=== PATIENT | female | born 1995 | race Caucasian/White ===

== ENCOUNTER 2020-03-21 14:20 | Observation (INO) | payer BC, SELFPAY ==
[2020-03-21 14:45] VITALS: BMI 34.3
[2020-03-21 14:46] VITALS: BP 135/66; PULSE 76
[2020-03-21 15:31] VITALS: BP 130/65; PULSE 71
[2020-03-21 15:46] VITALS: BP 127/68; PULSE 77
[2020-03-21 16:50] LABS: Add Urine Microscopic? YES; Appearance Urine Cloudy (Clear); Bacteria Urine 3+ /hpf; Bilirubin Urine Negative (Negative); Blood Urine Negative (Negative); Color Urine Yellow (Yellow); Glucose Urine UA Negative (Negative); Ketones Urine Negative (Negative); Leukocyte Esterase Ur Negative LEU/UL (NEGATIVE); Mucus Urine Rare /lpf; Nitrate Urine Negative (Negative); Protein Urine Negative (Negative); RBC Urine 0-2 /hpf (0-2); Specific Grav Ur 1.008 (1.001-1.035); Squamous Epithelial Cell Urine Many /hpf (Few); Urobilinogen Urine Negative mg/dL (<2.0)
--- NOTE | 2020-03-21 18:52 | P.PNOB_ITS ---
OB - Triage/Final Diagnosis Evaluation Laboratory results: Laboratory Tests 03/21/20 16:27 Urine Color Yellow Urine Appearance Cloudy H Urine pH 7.0 Ur Specific [place] 1.008 Urine Protein Negative Urine Glucose (UA) Negative Urine Ketones Negative Ur Blood (Man) Negative Urine Nitrate Negative Urine Bilirubin Negative Urine Urobilinogen Negative Ur Leukocyte Esterase Negative Urine RBC 0-2 Urine WBC 4-6 H Ur Squamous Epith Cells Many H Urine Bacteria 3+ H Hyaline Casts 1-2 Urine Mucus Rare Final Diagnosis (1) Abdominal pain affecting : Code(s): O26.899 - Other specified related conditions, unspecified trimester; R10.9 - Unspecified abdominal pain Status: Acute
== END 2020-03-21 17:15 | disposition home or self-care (01) ==
PROVIDERS: Admitting Provider Obstetrics & Gynecology; PCP Emergency Medicine; Visit Provider Obstetrics & Gynecology
DX: O26.899 Other specified pregnancy related conditions, unspecified trimester (principal); R10.9 Unspecified abdominal pain; Z3A.00 Weeks of gestation of pregnancy not specified
CPT/HCPCS: 81001; 87086; G0378; G0379

== ENCOUNTER 2020-04-22 20:28 | Outpatient (CLI) | payer BC, SELFPAY ==
[2020-04-22 21:00] VITALS: BP 135/73; PULSE 82; TEMP 36.4
[2020-04-22 21:01] VITALS: BP 135/73; PULSE 80
== END 2020-04-22 21:32 | disposition home or self-care (01) ==
LOC: ANHOBOP 20:34 → ANHOBPP 04-28 07:50
PROVIDERS: PCP Emergency Medicine; Visit Provider Obstetrics & Gynecology
DX: O13.9 Gestational [pregnancy-induced] hypertension without significant proteinuria, unspecified trimester (principal)
CPT/HCPCS: 59025; 99199

== ENCOUNTER 2020-04-29 17:45 | Outpatient (CLI) | payer BC, SELFPAY ==
[2020-04-29 18:14] VITALS: BP 131/77; PULSE 72
[2020-04-29 18:16] VITALS: BP 123/67; PULSE 67
[2020-04-29 18:32] VITALS: BP 131/77; PULSE 80
== END 2020-04-29 18:40 | disposition home or self-care (01) ==
LOC: ANHOBOP 17:49 → ANHOBPP 17:49
PROVIDERS: PCP Emergency Medicine; Visit Provider Obstetrics & Gynecology
DX: O13.9 Gestational [pregnancy-induced] hypertension without significant proteinuria, unspecified trimester (principal); Z3A.00 Weeks of gestation of pregnancy not specified
CPT/HCPCS: 59025; 99199

== ENCOUNTER 2020-06-02 13:20 | Outpatient (RCR) | payer BC, SELFPAY ==
[2020-05-12 14:51] VITALS: BP 122/70; PULSE 74
[2020-05-19 11:56] VITALS: BP 129/76; PULSE 74
[2020-05-26 13:54] LABS: Basophils Percent Auto 0.2 % (0.2-1.2); Eosinophils Absolute Auto 0.2 K/mm3 (0-0.3); Eosinophils Percent Auto 1.7 % (0-4.4); Hematocrit 34.5 % (37.0-47.0); Hemoglobin 11.5 g/dL (12.0-15.0); Immature Granulocyte Absolute 0.04 K/mm3 (0.00-0.031); Immature Granulocyte Percent A 0.4 % (0-0.5); Lymphocytes Percent Auto 19.5 % (18.3-44.2); Mean Corpuscular HGB Conc 33.3 g/dl (32-36); Mean Corpuscular Hemoglobin 31.3 pg (26-34); Mean Platelet Volume 10.3 fl (7.4-10.4); Monocytes Absolute Auto 0.6 K/mm3 (0.1-0.6); Monocytes Percent Auto 6.4 % (2.6-8.5); Neutrophils Absolute Auto 6.6 K/mm3 (1.3-6.7); Neutrophils Percent Auto 71.8 % (45.5-73.1); Platelet Count Result 184 k/mm3 (150-375); Red Blood Count 3.67 M/mm3 (4.2-5.4); Red Cell Distribution Width 12.8 % (11.5-14.5); White Blood Count 9.2 K/mm3 (4.5-10.0)
[2020-05-26 14:08] LABS: Alanine Aminotransferase 10 U/L (4-35); Albumin Level 3.1 g/dL (3.5-5.1); Alkaline Phosphatase 184 U/L (38-126); Anion Gap 6 mmol/L (8-16); Aspartate Amino Transferase 13 U/L (14-36); Bilirubin,Total 0.2 mg/dL (0.2-1.3); Blood Urea Nitrogen 5 mg/dL (7-17); Calcium 8.3 mg/dL (8.4-10.2); Carbon Dioxide 22 mmol/L (22-30); Chloride 109 mmol/L (98-107); Estimated Glomerular Filt Rate > 60; Glucose 80 mg/dL (65-105); Potassium 3.3 mmol/L (3.4-5.0); Sodium 137 mmol/L (137-145); Uric Acid 3.3 mg/dL (2.5-7.5)
[2020-05-26 14:15] VITALS: BP 129/73; PULSE 77
[2020-05-26 14:35] VITALS: BP 134/86
[2020-05-27 11:48] VITALS: BP 158/80; PULSE 90
--- NOTE | ~2020-06-02 | US_ITS ---
EXAMINATION: US OB BPP wo non-stress DATE: 05/26/2020 13:18 INDICATION: Biophysical profile for maternal gestational diabetes during third trimester of . TECHNIQUE: Real-time pelvic ultrasound was performed. The interpreting radiologist was not present fo r the study. COMPARISON: 05/19/2020 FINDINGS: There is a single living fetus in vertex presentation. The placenta is posterior. heart rate i s 134 beats per minute (bpm). Biophysical profile performed by the technologist: breathing (30 sec sustained breathing in 30 minutes): 2 out of 2 movement (3 gross body movements in 30 minutes): 0 out of 2 tone (one episode of yqaezje-iggyvaxmu-qserimx limb movement): 2 out of 2 Amniotic fluid pocket (2 cm): 2 out of 2 Total score: 6 out of 8 IMPRESSION: 1. Single living fetus in vertex presentation with heart rate of 134 bpm. 2. Biophysical profile 6 out of 8 with no points given for 3 gross body movements over 30 minutes of observation. Reviewed, dictated and finalized at location B. IMPRESSION: 1. Single living fetus in vertex presentation with heart rate of 134 bpm. 2. Biophysical profile 6 out of 8 with no points given for 3 gross body moveme nts over 30 minutes of observation.
--- NOTE | ~2020-06-02 | US_ITS ---
EXAMINATION: US OB BPP wo non-stress DATE: 05/19/2020 12:19 CDT INDICATION: Elevated TECHNIQUE: Real-time transabdominal obstetric ultrasound. FINDINGS: Comparison to 05/12/2020 There is a single living fetus in vertex presentation. The placenta is fundal without placenta previ a. cardiac activity and movement is noted with a heart rate of 148 beats per minute. Biophysical profile: breathin of 2 movement: 2 of 2 tone: 2 of 2 Amniotic flud pocket: 2 of 2 Total score: 8 of 8 IMPRESSION: 1. Single living intrauterine in vertex presentation. 2: Total biophysical profile score of 8/8. Reviewed, dictated and finalized at location B.
--- NOTE | ~2020-06-02 | US_ITS ---
EXAMINATION: US OB BPP wo non-stress DATE: 06/02/2020 14:40 INDICATION: Gestational hypertension, third trimester TECHNIQUE: Real-time pelvic ultrasound was performed. The interpreting radiologist was not present fo r the study. COMPARISON: 05/27/2020 FINDINGS: There is a single living fetus in vertex presentation. The placenta is fundal/left. heart rate is 152 beats per minute (bpm). The amniotic fluid index is 14 cm which is normal Biophysical profile performed by the technologist: breathing (30 sec sustained breathing in 30 minutes): 2 out of 2 movement (3 gross body movements in 30 minutes): 2 out of 2 tone (one episode of eaigbpy-jrcsbkmfd-jsgxbai limb movement): 2 out of 2 Amniotic fluid pocket (2 cm): 2 out of 2 Total score: 8 out of 8 IMPRESSION: 1. Single living fetus in vertex presentation. 2. Biophysical profile 8 out of 8. 3. Normal amniotic fluid index. Reviewed, dictated and finalized at location A. RNSHIP COORDINATOR
--- NOTE | ~2020-06-02 | US_ITS ---
. EXAMINATION: US OB limited w BPP DATE: 05/27/2020 12:23 INDICATION: Hypertension. Third trimester. TECHNIQUE: Real-time pelvic ultrasound was performed. COMPARISON: Ultrasound 05/26/2020 FINDINGS: There is a single living fetus in vertex presentation. The placenta is posterior. heart rate i s 135 beats per minute (bpm). The amniotic fluid index is 17.2 cm, which is normal. Biophysical profile performed by the technologist: breathing (30 sec sustained breathing in 30 minutes): 2 out of 2 movement (3 gross body movements in 30 minutes): 2 out of 2 tone (one episode of cdknmwk-kmkflkqcp-elcdubo limb movement): 2 out of 2 Amniotic fluid pocket (2 cm): 2 out of 2 Total score: 8 out of 8 IMPRESSION: 1. Single living fetus in vertex presentation. 2. Biophysical profile 8 out of 8. Reviewed, dictated and finalized at location A.
--- NOTE | ~2020-06-02 | US_ITS ---
EXAMINATION: US OB BPP wo non-stress DATE: 05/12/2020 15:09 INDICATION: Hypertension, third trimester TECHNIQUE: Real-time pelvic ultrasound was performed. The interpreting radiologist was not present fo r the study. COMPARISON: None. FINDINGS: There is a single living fetus in vertex presentation. The placenta is posterior. heart rate is 126 beats per minute (bpm). Biophysical profile performed by the technologist: breathing (30 sec sustained breathing in 30 minutes): 2 out of 2 movement (3 gross body movements in 30 minutes): 2 out of 2 tone (one episode of ffakpig-kqtkjxfrl-hpjyexk limb movement): 2 out of 2 Amniotic fluid pocket (2 cm): 2 out of 2 Total score: 8 out of 8 IMPRESSION: 1. Single living fetus in vertex presentation. 2. Biophysical profile 8 out of 8. Reviewed, dictated and finalized at location A.
[2020-06-02 14:53] VITALS: BP 134/73; PULSE 76
== END 2020-06-09 07:42 | disposition home or self-care (01) ==
LOC: ANHOBOP 13:20
PROVIDERS: PCP Emergency Medicine; Visit Provider Obstetrics & Gynecology
DX: O26.893 Other specified pregnancy related conditions, third trimester (principal); R03.0 Elevated blood-pressure reading, without diagnosis of hypertension; Z3A.35 35 weeks gestation of pregnancy; Z3A.36 36 weeks gestation of pregnancy; Z3A.37 37 weeks gestation of pregnancy; O16.3 Unspecified maternal hypertension, third trimester; Z3A.38 38 weeks gestation of pregnancy
CPT/HCPCS: 36415; 59025; 76815; 76819; 80053; 84550; 85025

== ENCOUNTER 2020-06-05 12:23 | Outpatient (CLI) | payer BC, SELFPAY ==
[2020-06-05 12:51] LABS: Hematocrit 35.6 % (37.0-47.0); Hemoglobin 11.7 g/dL (12.0-15.0); Mean Corpuscular HGB Conc 32.9 g/dl (32-36); Mean Corpuscular Hemoglobin 31.1 pg (26-34); Mean Corpuscular Volume 94.7 fl (80-100); Mean Platelet Volume 10.2 fl (7.4-10.4); Platelet Count Result 179 k/mm3 (150-375); Red Blood Count 3.76 M/mm3 (4.2-5.4); White Blood Count 8.9 K/mm3 (4.5-10.0)
[2020-06-06 11:09] LABS: Rapid Plasma Reagin Non-Reactive (NonReactive)
== END 2020-06-05 12:24 | disposition home or self-care (01) ==
PROVIDERS: PCP Emergency Medicine; Visit Provider Obstetrics & Gynecology
DX: Z01.812 Encounter for preprocedural laboratory examination (principal)
CPT/HCPCS: 36415; 85027; 86592; 86850; 86900; 86901

== ENCOUNTER 2020-06-06 08:46 | Inpatient (IN) | payer BC, SELFPAY ==
--- NOTE | 2020-06-05 19:17 | HP_ITS ---
This report was moved to the correct visit, [id number] on 06/09/20. Original report was signed by Dr. Yun on 06/05/20 at 1941. H&P: HPI History of Present Illness Date/Time: 06/05/20 19:17 Chief complaint: Pre-admit Narrative: Fransisca Gray is a 24 year old female, , presents for WILBERTO at 39w. Pmhx MTHFR , abnormal progesterone, deliveries by , ALTAF, GBS, depression, tobacco use, and HSV. admitted for repeat C/s Tuesday06/06/20. i explained her condition procedure nd risks she uunderstands accepts agrees to proceed Review of Systems Review of Systems: All systems reviewed & are unremarkable except as noted in HPI and below Constitutional: Constitutional: Reports no additional constitutional complaints Eyes: Eyes: Reports no additional eye complaints ENT: Reports system reviewed and no additional complaints, except as documented Cardiovascular: Cardiovascular: Reports no additional cardiovascular complaints Respiratory: Respiratory: Reports no additional respiratory complaints Gastrointestinal: Gastrointestinal: Reports no additional gastrointestinal complaints Genitourinary: Genitourinary: Reports no additional female genitourinary complaints Musculoskeletal: Musculoskeletal: Reports no additional musculoskeletal complaints Integumentary/Breasts: Skin/Breast: Reports system reviewed and no additional complaints, except as docu Neurologic: Reports system reviewed and no additional complaints, except as documented Psychiatric: Psychiatric: Reports no additional psychiatric complaints Endocrine: Endocrine: Reports no additional endocrine complaints Hematologic/Lymphatic: Hematologic/Lymphatic: Reports no additional hematologic/lymphatic complaints Allergic/Immunologic: Allergic/Immunologic: Reports no additional allergic/immunologic complaints [facility] Past Medical History Medical History (Updated 06/05/20 @ 19:31 by Ricci Yun MD) ALTAF (generalized anxiety disorder) GBS (group B streptococcus) infection Heterozygous MTHFR mutation [id number] HSV (herpes simplex virus) infection MDD (major depressive disorder) Smoker Vaginal delivery 04/22/11 nsvvd 5-11 male Surgical History Surgical History (Updated 06/05/20 @ 19:31 by Ricci Yun MD) Delivery by section 08/09/18 primary LTCS female hsv active 6-3 38 weeks Family History Family History Father Heart disease Social History Social History (Updated 06/05/20 @ 19:33 by Ricci Yun MD) Smoking packs per day: 0.5 Smoking cigarettes per day: 10.0 Years smoked: 7 Smoking pack-years: 3.50 Smoking status: Current every day smoker Tobacco type: cigarettes Second hand tobacco smoke exposure: Yes Alcohol intake: former Substance use: never Substance use type: does not use Living arrangements: with family Occupation/Education: occupation Additional occupation/education comments: [employer], [employer] Gender identity (if verbalized by the patient): Female Sexual Orientation (if Verbalized by the Patient): Straight or Heterosexual Spiritual care concerns: No Agree to blood products: Yes Meds Home Medications and Allergies Home Medications Medication Instructions Recorded Confirmed Type PNV cmb#95-ferrous fumarate-FA 1 tablet PO DAILY 05/17/20 05/17/20 History [] aspirin 81 mg PO DAILY 05/17/20 05/17/20 History lamotrigine [Lamictal] 75 mg PO BID 05/17/20 05/17/20 History sertraline 100 mg PO DAILY 05/17/20 05/17/20 History valacyclovir [Valtrex] 800 mg
--- NOTE | 2020-06-05 19:42 | HP_ITS ---
This report was moved to the correct visit, [id number] on 06/09/20. Original report was signed by Dr. Yun on 06/05/20 at 1942. Obstetrics - Admit Note Admission Note: record reviewed. No pertinent additions to the history and/or any subsequent changes in the physical findings that are not consistent with the expected course of the were found. Additions to the history and/or subsequent changes in the physical findings follow. None. Fransisca Gray is a 24 year old female, , presents for WILBERTO at 39w. Pmhx MTHFR , abnormal progesterone, deliveries by , ALTAF, GBS, depression, tobacco use, and HSV. admitted for repeat C/s Tuesday06/06/20. i explained her condition procedure nd risks she uunderstands accepts agrees to proceed Report Initialized date/time: Ricci Yun MD 06/05/201941 Electronically signed by: Ricci Yun MD 06/05/201941 [facility]
--- NOTE | 2020-06-05 19:42 | PN_ITS ---
This report was moved to the correct visit, [id number] on 06/09/20. Original report was signed by Dr. Yun on 06/05/20 at 1942. History and Physical Update Update Date/Time: 06/06/20 07:41 History and Physical has been reviewed, including an updated exam of the patient. There are NO changes in the patient's condition. Risks, benefits, and alternatives have been discussed and questions answered. Patient agrees to proceed with procedure. Fransisca Gray is a 24 year old female, , presents for WILBERTO at 39w. Pmhx MTHFR , abnormal progesterone, deliveries by , ALTAF, GBS, depression, tobacco use, and HSV. admitted for repeat C/s Tuesday06/06/20. i explained her condition procedure nd risks she uunderstands accepts agrees to proceed Report Initialized date/time: Ricci Yun MD 06/05/20 / 1941 Electronically signed by: Ricci Yun MD 06/05/201941 [facility]
[2020-06-06] VITALS (45 sets, daily range): BP systolic 86–132; BP diastolic 45–85; PULSE 47–77; RESP 13–18; TEMP 36.2–36.6; O2SAT 94–100; BMI 38.3
[2020-06-06] MEDS: LACTATED RINGERS 1,000 ML 125 ML IV CONT ×2 (09:32→12:03)
--- NOTE | 2020-06-06 09:43 | LDADM ---
This patient, Fransisca Gray, was admitted to Labor/Delivery/Recovery 119 on 06/06/20 at 08:46. Plans for scheduled section, pain management and were discussed with patient. Patient/family oriented to hospital policies and general routines including ID bracelet, bed and alarms, visiting hours, pain management, procedures, bathroom and other care routines, personal items, smoking policy, room service/diet and guest tray routines, security routines, and visiting hours. Patient/Family are encouraged to report perceived risks to care and to ask questions if they do not understand what they are told or what they should do. See OBIX for further documentation.
[2020-06-06] MEDS: CLINDAMYCIN 900 MG/D5W 50 ML 900 MG/50 ML PIGGYBACK 50 MG IVPB (10:06)
--- NOTE | 2020-06-06 10:15 | WPDANESEPPF ---
Anes - Initial Pre Proc Eval Procedure: Operation Date: 06/06/20 10:30 Proposed Procedures p Repeat Low Transverse Section - Ricci Yun MD Date/Time: 06/06/20 10:15 Surgeon: Ricci Yun MD Pre Op Diagnosis: C Section Patient Data Age: 24 Gender: F Height: 5 ft 6 in Weight: 107.73 kg Last Vital Signs Temp 36.2 C L 06/06/20 10:01 Pulse 77 06/06/20 09:13 BP 132/84 06/06/20 09:13 Allergies Allergy/AdvReac Type Severity Reaction Status Date / Time lamotrigine Allergy Unknown Hives Verified 05/17/20 12:49 bupropion Allergy Hives Verified 05/17/20 13:14 Penicillins Allergy Hives Verified 05/17/20 12:49 Contrast Media Allergy Unknown Hives Uncoded 05/17/20 12:49 Home Medications Medication Instructions Recorded Confirmed Type PNV cmb#95-ferrous fumarate-FA 1 tablet PO DAILY 05/17/20 05/17/20 History [] aspirin 81 mg PO DAILY 05/17/20 05/17/20 History lamotrigine [Lamictal] 75 mg PO BID 05/17/20 05/17/20 History sertraline 100 mg PO DAILY 05/17/20 05/17/20 History valacyclovir [Valtrex] 800 mg PO DAILY 05/17/20 05/17/20 History Patient hx anesthesia problems: none Family hx anesthesia problems: none PMFSH Past Medical History Medical History ALTAF (generalized anxiety disorder) GBS (group B streptococcus) infection Heterozygous MTHFR mutation [id number] HSV (herpes simplex virus) infection MDD (major depressive disorder) Smoker Vaginal delivery 04/22/11 nsvvd 5-11 male Surgical History Surgical History Delivery by section 08/09/18 primary LTCS female hsv active 6-3 38 weeks Family History Family History Father Heart disease Social History Social History Smoking packs per day: 0.5 Smoking cigarettes per day: 10.0 Years smoked: 7 Smoking pack-years: 3.50 Smoking status: Current every day smoker Tobacco type: cigarettes Second hand tobacco smoke exposure: Yes Alcohol intake: former Substance use: never Substance use type: does not use Additional occupation/education comments: cleans houses, [employer] Gender identity (if verbalized by the patient): Female Spiritual care concerns: No Agree to blood products: Yes Anes - Eval Final PreProcedure Day of Procedure 06/06/20 10:15 Patient weight: obese Heart: regular rate and rhythm Lungs: decreased breath sounds Airway: Mallampati scale class II Neurological: alert and oriented Last oral intake: >/= 8 hours ASA classification: III Emergent: no Anesthetic plan: proceed Anesthesia type and monitoring: regional spinal and standard monitoring Informed Consent: The patient's anesthetic plan and its attendant risks and benefits were discussed with the patient/family/POA. Questions were solicited and answers provided to the satisfaction of the patient/family/POA.
[2020-06-06] MEDS: GENTAMICIN SULFATE INJ 395 MG in DEXTROSE 5% 100 ML 109.88 MG IVPB (10:32)
--- NOTE | 2020-06-06 11:44 | PM.OBPRVD ---
OB - Delivery Note Procedure Delivery date: 06/06/20 Procedure: Procedures Operation Date: 06/06/20 10:30 repeat low-transverse section with delivery of viable male and placenta events: Previous Intrapartal events: None Induction method: none Delivery monitor: external FHT and external uterine Route of delivery: ( repeat low-transverse) Laceration Description: None Specimen: Yes ( placenta, cord blood, cord blood gases) Estimated blood loss (mL): 475 Anesthesia type: Spinal Disposition: floor Complications: none Baby Date of : 06/06/20 Time of : 11:00 Weeks of gestation at delivery: 39 Infant gender: Male ( Dania DRAKE ) Weight (pounds): 7 Weight (ounces): 12 presentation: vertex position: Left Occiput Transverse Placenta delivery description: Manual Removal and Normal Configuration cord vessel description: 3 Vessels score one minute: 8 score five minutes: 9
--- NOTE | 2020-06-06 11:49 | P.OP_ITS ---
Procedure Note - Detailed Date of procedure: 06/06/20 Pre-op diagnosis: C Section term previous desires repeat section MTHFR mutation heterozygous HSV M DD GBS ALTAF Smoking Post-op diagnosis: same ( delivered viable male infant and placenta) Procedure performed: repeat low-transverse section with delivery of viable male and placenta Description of procedure: informed consent was obtained the patient was taken to the operating room where spinal anesthetic was administered in the sitting position patient was then placed in the supine position and a Liu catheter was inserted. The abdomen was then prepped and then draped in the usual sterile fashion and a abdominal source support device Traxi was utilized. A time-out was performed and the abdomen was tested for adequate pain relief. An elliptical incision was made around the old scar and the old scar was excised using electrocautery hemostasis obtained with electrocautery. The fascia was entered with electrocautery and hand undermined superior and inferior rectus muscle the midline peritoneum entered with electrocautery transverse incision was made to the uterus rupture membranes revealed clear fluid uterine incision digitally dissected vertex was then delivered via the abdominal incision with a Nose and Throat bulb suctioned cord clamped and cut the infant handed to the nursery nurse in attendance scores 8 and 9 weight 37199 inches long born at 11:00 a.m. taken to the nursery in stable condition. Placenta delivered intact 3 vessel cord after cord gases and cord blood obtained the uterus contracted well Pitocin given intravenously and 10 units into the myometrium. The uterus was externalized blood clots membranes removed from the intrauterine cavity the uterine incision was then repaired with 0 Vicryl in a running interlocking fashion 2nd being an imbricating stitch in a hagjnp-zv-rnjyz suture along the midline of the uterine incision hemostasis excellent blood and clots removed from the cul-de-sac with irrigation. The uterus was returned to the peritoneal cavity the sponge needle instrument counts correct the anterior peritoneum and rectus muscles reapproximated 0 Vicryl in a running fashion. The fascia was closed with 2 Quill SIRS system bilaterally Davis's fascia was then reapproximated with 3 0 plain interrupted fashion the skin was closed with insorb dissolvable staple device followed by Dermabond to the skin and a Mepilex dressing placed over the incision patient was taken to the recovery room in stable condition Anesthesia: spinal Surgeon: Ricci Yun MD Lead Qa Analyst: surgical coder x2 Estimated blood loss (mL): 475 IV fluids (mL): 2,200 Urine output (mL): 150 Drains: Yes ( Liu) Packing: No Pathology: yes ( placenta, cord gases, cord blood) Complications: None Condition: stable Disposition: floor Findings: viable male delivered at 11 o'clock on 06/06/2020 scores 8 and 9 at 1 and 5 minutes weighing 7 lb 12 oz 20 inches long [facility] in stable condition had a normal examination normal transition spontaneous respirations and cry baby's name is Dania Cerda placenta normal intact three-vessel cord uterus tubes ovaries normal VTE prevention SCDs Antibiotic prophylaxis Ancef 2 g Counts correct Complications none
[2020-06-06] MEDS: OXYTOCIN 30 UNITS/NS 500 ML 30 UNITS/500 ML BAG 125 UNITS IV CONT (12:25)
--- NOTE | 2020-06-06 15:31 | PC.NURSE ---
Patient transferred to post room #283 via stretcher. Support person present. Oriented to unit, room, information board, rooming in, admission packet and security measures. Patient verbalizes understanding.
[2020-06-06] MEDS: DOCUSATE SODIUM 100 MG CAPSULE PO (17:28)
[2020-06-06] MEDS: KETOROLAC 30 MG/ML VIAL (*BKC) IV PUSH ×2 (17:28→23:56)
[2020-06-06] MEDS: DEXTROSE 5%/0.45% SOD CHL 1,000 ML 125 ML IV CONT (17:29)
[2020-06-06] MEDS: lamoTRIgine 25 MG TABLET 75 MG PO (23:50)
[2020-06-07 03:30] VITALS: BP 126/61; PULSE 68; RESP 13; TEMP 36.2; O2SAT 99
[2020-06-07 04:58] LABS: Basophils Percent Auto 0.1 % (0.2-1.2); Eosinophils Absolute Auto 0.1 K/mm3 (0-0.3); Eosinophils Percent Auto 0.9 % (0-4.4); Hemoglobin 9.8 g/dL (12.0-15.0); Immature Granulocyte Absolute 0.04 K/mm3 (0.00-0.031); Immature Granulocyte Percent A 0.4 % (0-0.5); Lymphocytes Absolute Auto 1.55 K/mm3 (0.9-3.2); Lymphocytes Percent Auto 16.2 % (18.3-44.2); Mean Corpuscular HGB Conc 32.7 g/dl (32-36); Mean Corpuscular Hemoglobin 30.7 pg (26-34); Monocytes Absolute Auto 0.6 K/mm3 (0.1-0.6); Monocytes Percent Auto 6.2 % (2.6-8.5); Neutrophils Absolute Auto 7.3 K/mm3 (1.3-6.7); Neutrophils Percent Auto 76.2 % (45.5-73.1); Platelet Count Result 175 k/mm3 (150-375); Red Blood Count 3.19 M/mm3 (4.2-5.4); Red Cell Distribution Width 12.8 % (11.5-14.5); White Blood Count 9.5 K/mm3 (4.5-10.0)
[2020-06-07] MEDS: IBUPROFEN 600 MG TABLET PO ×4 (05:58→23:50)
[2020-06-07 07:45] VITALS: BP 133/77; PULSE 68; RESP 16; TEMP 36.3; O2SAT 100
[2020-06-07] MEDS: DOCUSATE SODIUM 100 MG CAPSULE PO ×2 (08:13→17:40)
[2020-06-07] MEDS: SERTRALINE HCL 50 MG TABLET 100 MG PO (08:13)
[2020-06-07] MEDS: MULTIVIT/MIN/PREN/FOL AC/IRON TABLET 1 TAB PO (08:13)
[2020-06-07] MEDS: POLYSACCHARIDE IRON COMPLEX 150 MG CAPSULE PO ×2 (08:13→17:40)
[2020-06-07] MEDS: lamoTRIgine 25 MG TABLET 75 MG PO ×2 (08:14→19:51)
[2020-06-07] MEDS: HYDROcodone/acetaminophen (*CRX) 5-325 MG TABLET 1 TAB PO ×2 (08:24→13:15)
--- NOTE | 2020-06-07 12:36 | P.PNOB_ITS ---
OB - PN: Subj Subjective Date/time seen: 06/07/20 12:36 POD#1 She reports doing well today. Her pain is controlled w/ PO pain meds. She has tolerated regular diet. She has ambulated. She is voiding and passing flatus. She reports her bleeding is light. She is bottle feeding. She would like her son to be circumcised. She would like to go home tomorrow. She denies fever, chills, headaches, vision changes, nausea, vomiting, shortness of breath, chest pain, dizziness or palpitations. OB - PN: Obj Data Labs CBC & Chem 7: 06/07/20 03:34 Labs: Laboratory Results - last 24 hr 06/07/20 03:34 WBC 9.5 RBC 3.19 L Hgb 9.8 L Hct 30.0 L MCV 94.0 MCH 30.7 MCHC 32.7 RDW 12.8 Plt Count 175 MPV 11.0 H Immature Gran % (Auto) 0.4 Neut % (Auto) 76.2 H Lymph % (Auto) 16.2 L Bullock % (Auto) 6.2 Eos % (Auto) 0.9 Baso % (Auto) 0.1 L Lymph # (Auto) 1.55 [place] # (Auto) 0.6 Eos # (Auto) 0.1 Baso # (Auto) 0.0 Abs Immat Gran (auto) 0.04 H Absolute Neuts (auto) 7.3 H Absolute Nucleated RBC 0.0 Nucleated RBC % 0.0 OB - PN A/P Assessment and Plan (1) Delivery by section: Status: Acute Plan day: 1 Plan: routine care, discharge home (tomorrow) and follow up 6 weeks (w/ Dr. Yun) Comments: ER return precautions discussed Time Spent With Patient Time: Total time spent is greater than 50% in coordination of care (as documented) at patient's floor/unit and/or counseling patient: Time with patient: less than 15 minutes Review of Systems Review of Systems: All systems reviewed & are unremarkable except as noted in HPI and below (HPI) Exam Const: General: cooperative, healthy appearing, comfortable and no acute distress (ambulating in room) Resp: Effort & Inspection: normal respiratory effort Auscultation: clear to auscultation bilaterally Cardio: Rate: regular rate GI: Inspection: normal to inspection, non-distended and incision (covered w/ clean bandage) GI Palp: Yes abdominal tenderness (appropriate) and Yes Soft to palpation Auscultation: normal bowel sounds : Other: fundus firm at umbilicus Skin: General skin exam: normal color Neuro: General: patient oriented x3 Extrem: General: normal to inspection Psych: Appearance: grossly normal and well kempt Affect: normal affect Attitude: cooperative
--- NOTE | 2020-06-07 13:49 | WPDANLDPN2 ---
Anes-Prog Note L&D Date/Time: 06/07/20 13:49 Comfortable throughout: section Neuraxial method: spinal Epidural/Spinal procedure site: clean & non-tender Neuro status: Neuro function grossly intact. Cardiovascular status: normal Respiratory status: normal Airway patency: baseline Mental status: baseline Post-Op hydration status: normal Vital Signs: Last Vital Signs Temp 36.3 C L 06/07/20 07:45 Pulse 68 06/07/20 07:45 Resp 16 06/07/20 07:45 BP 133/77 06/07/20 07:45 Pulse Ox 100 06/07/20 07:45 Pain score (VAS): 2/10 I/O: Intake & Output 06/06/20 06/07/20 06/07/20 23:59 07:59 15:59 Intake Total 1000 Output Total 875 1900 Balance 125 -1900 Post-procedural complaints: none Patient feedback: Patient satisfied with anesthetic care.
--- NOTE | 2020-06-07 13:50 | WPDANLDNPN2 ---
Anes-Prog Note L&D-Neuraxial Date/Time: 06/07/20 13:50 Neuraxial medications: intrathecal PF morphine Opiod-related complaints: none Patient feedback: Patient satisfied with post-operative pain management.
[2020-06-07] MEDS: valACYclovir HCL 500 MG TABLET PO (17:40)
[2020-06-07 20:00] VITALS: BP 140/80; PULSE 61; RESP 18; TEMP 36.4; O2SAT 100
[2020-06-08] MEDS: IBUPROFEN 600 MG TABLET PO ×2 (05:19→13:39)
[2020-06-08 07:45] VITALS: BP 150/87; PULSE 80; RESP 18; TEMP 36.7; O2SAT 100
[2020-06-08] MEDS: POLYSACCHARIDE IRON COMPLEX 150 MG CAPSULE PO (08:03)
[2020-06-08] MEDS: DOCUSATE SODIUM 100 MG CAPSULE PO (08:04)
[2020-06-08] MEDS: SERTRALINE HCL 50 MG TABLET 100 MG PO (08:05)
[2020-06-08] MEDS: lamoTRIgine 25 MG TABLET 75 MG PO (08:05)
[2020-06-08] MEDS: MULTIVIT/MIN/PREN/FOL AC/IRON TABLET 1 TAB PO (08:05)
[2020-06-08] MEDS: HYDROcodone/acetaminophen (*CRX) 5-325 MG TABLET 1 TAB PO (08:09)
--- NOTE | 2020-06-08 12:02 | PM.OBDSVD ---
DS: Admitting Diagnosis Admitting Diagnosis Admitting Diagnosis: C Section term Previous section desires repeat section MTHFR mutation heterozygous Generalized anxiety disorder Group B strep carrier Herpes simplex Major depressive disorder Smoker DS: Discharge Diagnosis Discharge Diagnosis (1) Term delivered: Code(s): O80 - Encounter for full-term uncomplicated delivery Status: Acute (2) Delivery by section: Status: Acute (3) HSV (herpes simplex virus) infection: Code(s): B00.9 - Herpesviral infection, unspecified Status: Acute (4) GBS (group B streptococcus) infection: Code(s): A49.1 - Streptococcal infection, unspecified site Status: Acute (5) MDD (major depressive disorder): Code(s): F32.9 - Major depressive disorder, single episode, unspecified Status: Acute (6) ALTAF (generalized anxiety disorder): Code(s): F41.1 - Generalized anxiety disorder Status: Acute (7) Heterozygous MTHFR mutation [id number]: Code(s): E72.12 - Methylenetetrahydrofolate reductase deficiency Status: Acute (8) Smoker: Code(s): F17.200 - Nicotine dependence, unspecified, uncomplicated Status: Acute OB - DS: Summary Hospital Course Time spent discussing smoking cessation with patient: 3 to 10 minutes OB Procedures : NST and Ultrasound OB Procedures Intrapartum: ( repeat) low cervical, transverse OB Procedures: : None Peripartum Data Infant Delivery Method: Section ( repeat low-transverse) Laceration Description: None Episiotomy description: None Procedures: Procedures Operation Date: 06/06/20 10:30 repeat low-transverse section with delivery of viable male infant and placenta complications: none [place] 1: Gender: Male (Dania Cerda Jr ) Disposition of : home Status at Discharge Functional status at discharge: independent ambulation Overall status at discharge: patient is back to baseline Time Spent with Patient Time attestation: Total time spent providing and/or coordinating discharge services: Time spent: Less than 30 minutes Exam Const: General: cooperative Nutritional Appearance: average body habitus Orientation/consciousness: patient oriented x3 Limitations: no limitations HENMT: Head: normal to inspection Eyes: General: appearance normal, both eyes and all related structures Neck: Neck: normal visual inspection and full ROM Chest: Chest palpation & inspection: normal inspection of the chest Breast/axilla inspection: normal inspection of the breasts Breast/axilla palpation: normal palpation of the breasts Resp: Effort & Inspection: normal respiratory effort Auscultation: clear to auscultation bilaterally Cardio: Jugular venous distension: no JVD Palpation: normal PMI Rate: regular rate Rhythm: regular rhythm Heart sounds: S1 normal heart sound present and S2 normal heart sound present GI: Inspection: normal to inspection, incision ( dressing dry and intact) and obesity GI Palp: Yes Soft to palpation and Yes Firmness to palpation present (GI) ( uterus) Percussion: Yes normal to percussion Auscultation: normal bowel sounds : External Female Exam: normal external appearance Urinary Catheter: Urinary Catheter: urine clear Back/Spine/Pelvis: Back: no CVA tenderness Cervical Spine: normal cervical lordosis Skin: General skin exam: normal color and no rashes or lesions noted Neuro: General: patient oriented x3, gait normal, tone normal, moves all extremities, Normal light touch and pain sensation, no meningeal signs, no focal motor deficits and CN's II-XI intact bilaterally Extrem: General: normal to inspection and full ROM Psych: Appearance: grossly normal Mental Status: mental status grossly normal Speech and movement: Normal speech and movement present Affect: normal affect Attitude: coop
[2020-06-08] MEDS: valACYclovir HCL 500 MG TABLET PO (13:39)
[2020-06-09 08:24] VITALS: BP 143/85; PULSE 58; RESP 20; TEMP 36.8; O2SAT 100
== END 2020-06-08 13:59 | disposition home or self-care (01) | DRG 540 ==
LOC: ANHLDR 12:08 → ANHOB2 14:32
PROVIDERS: Admitting Provider Obstetrics & Gynecology; PCP Emergency Medicine; Visit Provider Obstetrics & Gynecology
PROC: 10D00Z1 Extraction of Products of Conception, Low, Open Approach (ICD-10-PCS; CPT 59514; principal; 2020-06-06 10:30)
DX: O34.211 Maternal care for low transverse scar from previous cesarean delivery (principal); Z37.0 Single live birth; Z3A.39 39 weeks gestation of pregnancy; O99.284 Endocrine, nutritional and metabolic diseases complicating childbirth; E72.12 Methylenetetrahydrofolate reductase deficiency; O98.32 Other infections with a predominantly sexual mode of transmission complicating childbirth; B00.9 Herpesviral infection, unspecified; O99.344 Other mental disorders complicating childbirth; F41.8 Other specified anxiety disorders; O99.334 Smoking (tobacco) complicating childbirth; F17.210 Nicotine dependence, cigarettes, uncomplicated; O99.824 Streptococcus B carrier state complicating childbirth; O99.214 Obesity complicating childbirth; E66.9 Obesity, unspecified
CPT/HCPCS: 36415; 85025; 88307; A9270; J0131; J1200; J1580; J1885; J2274; J2405; J2590; J7120